=== PATIENT | male | born 1970 | race Caucasian/White ===

== ENCOUNTER 2021-10-23 07:23 | Emergency (ER) | payer OTHER ==
[~2021-10-23] VITALS: Ht 170.2 cm; Wt 76.0 kg
[2021-10-23 07:29] VITALS: BP 188/103
[2021-10-23] MEDS ORDERED: SULF1TAB48 PO (09:26)
== END 2021-10-23 10:01 | disposition home or self-care (01) ==
LOC: ER 07:23
DX: L08.9 Local infection of the skin and subcutaneous tissue, unspecified (principal); Z79.899 Other long term (current) drug therapy
CPT/HCPCS: 99283

== ENCOUNTER 2022-07-22 23:32 | Emergency (ER) | payer MEDICARE, MEDICAID ==
[~2022-07-22] VITALS: Ht 167.6 cm; Wt 77.2 kg
[2022-07-22 23:43] VITALS: BP 169/99
== END 2022-07-23 01:39 | disposition left against medical advice (07) ==
LOC: ER 23:33
DX: F29 Unspecified psychosis not due to a substance or known physiological condition (principal); Z53.21 Procedure and treatment not carried out due to patient leaving prior to being seen by health care provider